=== PATIENT | female | born 1975 | race Caucasian/White ===

== ENCOUNTER → 2017-03-10 | Outpatient (CLI) | payer OTHER ==
[~2017-03-10] MED LIST: ALLEGRA180 MG PO; AMOXICILLIN500 MG PO; AMOXIL500 MG PO; ANAPROX DS550 MG PO; ATIVAN1 MG PO; CORTISPORIN 1%-10 M1 OT; MEDROL DOSEPAK4 MG PO; TRIMOX500 MG PO; VICODIN ES 7501 TAB PO
== END | disposition home or self-care (01) ==
LOC: RAD 09:25
DX: M48.02 Spinal stenosis, cervical region (principal); M99.01 Segmental and somatic dysfunction of cervical region; M99.03 Segmental and somatic dysfunction of lumbar region; M99.04 Segmental and somatic dysfunction of sacral region; Z91.81 History of falling

== ENCOUNTER 2022-05-28 11:52 | Emergency (ER) | payer OTHER ==
[2022-05-28] MEDS ORDERED: AMOXICILLIN500 M2 PO (12:16)
[2022-05-28] MEDS ORDERED: Percocet 325 MG1 TAB PO (12:16)
== END 2022-05-28 12:21 | disposition home or self-care (01) ==
LOC: ED 11:52
DX: K08.89 Other specified disorders of teeth and supporting structures (principal); F41.9 Anxiety disorder, unspecified; Z88.2 Allergy status to sulfonamides; Z88.8 Allergy status to other drugs, medicaments and biological substances; Z98.890 Other specified postprocedural states

== ENCOUNTER → 2023-09-17 | Outpatient (CLI) | payer OTHER ==
[~2023-09-17] MED LIST changes: +AMOXICILLIN500 M2 PO; +Percocet 325 MG1 TAB PO
[2023-09-17 09:56] LABS: URINE AMPHETAMINES Negative (1000ng/ml); URINE BARBITURATES Negative (200ng/ml); URINE BENZODIAZEPINES Negative (200ng/ml); URINE CANNABINOIDS (THC) Negative (50ng/ml); URINE COCAINE Negative (300ng/ml); URINE METHADONE Negative (300ng/ml); URINE OPIATES Negative (300ng/ml); URINE PHENCYCLIDINE Negative (25ng/ml)
== END | disposition home or self-care (01) ==
LOC: LAB 09:09
PROVIDERS: ATTEND Psychiatry & Neurology Psychiatry
DX: R82.5 Elevated urine levels of drugs, medicaments and biological substances (principal)

== ENCOUNTER 2023-10-09 14:52 | Emergency (ER) | payer OTHER ==
[~2023-10-09] VITALS: Ht 157.4 cm; Wt 72.6 kg
[2023-10-09] MEDS ORDERED: ZESTRIL10 MG PO (15:24)
[2023-10-09] MEDS ORDERED: BUSPAR5 MG PO (15:24)
[2023-10-09] MEDS ORDERED: hydrOXYzine pamoate 25 MG CAP PO ONE (15:40)
[2023-10-09 16:02] LABS: BASO % 0.5 % (0.0-1.0); EOS # 0.1 10*3/uL (0.0-0.4); EOS % 0.9 % (1.0-4.0); HEMATOCRIT 42.7 % (37.0-47.0); LYMPH # 0.8 10*3/uL (1.3-4.4); LYMPH % 10.2 % (27.0-41.0); MEAN CELL VOLUME 92.2 fl (81.0-99.0); MEAN CORPUSCULAR HGB 32.2 pg (27.0-31.0); MEAN CORPUSCULAR HGB CONC 34.9 g/dl (33.0-37.0); MEAN PLATELET VOLUME 8.9 fl (9.6-12.3); MONO # 0.5 10*3/uL (0.1-1.0); MONO % 6.3 % (3.0-9.0); NEUT # 6.2 10*3/uL (2.3-7.9); NEUT % 81.3 % (47.0-73.0); PLATELET COUNT AUTOMATED 313 10*3/uL (130-400); RED BLOOD COUNT 4.63 10*6/uL (4.10-5.10); RED CELL DISTRI WIDTH 12.5 % (0-14.5); WHITE BLOOD COUNT 7.6 10*3/uL (4.8-10.8)
[2023-10-09 16:26] LABS: BUN < 5 mg/dl (9-23); CHLORIDE 100 mmol/L (98-107); POTASSIUM 3.3 mmol/L (3.4-5.1)
[2023-10-09] MEDS ORDERED: POTASSIUM CHLORIDE 20 MEQ TAB PO ONE (16:40)
[2023-10-09] MEDS ORDERED: MAGNESIUM CITRATE 296 ML BOT PO ONE (16:40)
[2023-10-09] MEDS ORDERED: VISTARIL25 MG PO (17:26)
== END 2023-10-09 17:02 | disposition home or self-care (01) ==
LOC: ED 14:52
PROVIDERS: Nurse Practitioner Family
DX: K59.00 Constipation, unspecified (principal); F41.9 Anxiety disorder, unspecified; H53.8 Other visual disturbances; E87.6 Hypokalemia; Z88.2 Allergy status to sulfonamides; Z88.8 Allergy status to other drugs, medicaments and biological substances; Z98.890 Other specified postprocedural states

== ENCOUNTER → 2024-04-23 | Outpatient (CLI) | payer OTHER ==
[~2024-04-23] MED LIST changes: +BUSPAR5 MG PO; +VISTARIL25 MG PO; +ZESTRIL10 MG PO
== END | disposition home or self-care (01) ==
LOC: US 10:00
PROVIDERS: ATTEND Nurse Practitioner Family
DX: E04.1 Nontoxic single thyroid nodule (principal); R22.1 Localized swelling, mass and lump, neck

== ENCOUNTER → 2024-05-11 | Outpatient (CLI) | payer OTHER | END | disposition home or self-care (01) | LOC: SDC 11:00 → EDSTATUS 11:00 | PROVIDERS: ATTEND Nurse Practitioner Family | DX: E04.1 Nontoxic single thyroid nodule (principal) ==

== ENCOUNTER 2024-05-18 15:39 | Emergency (ER) | payer OTHER ==
[~2024-05-18] VITALS: Ht 157.4 cm; Wt 70.3 kg
[2024-05-18] MEDS ORDERED: BUSPIRONE HCL10 MG PO (15:50)
[2024-05-18] MEDS ORDERED: LORAZEPAM0.5 M1 PO (15:50)
[2024-05-18] MEDS ORDERED: LISINOPRIL20 MG PO (15:51)
[2024-05-18] MEDS ORDERED: AMOXICILLIN 500 MG CAP PO ONE (16:00)
[2024-05-18] MEDS ORDERED: MELOXICAM15 MG PO (16:00)
[2024-05-18] MEDS ORDERED: Acetaminophen/Oxycodone 5 MG/325 MG TABLET PO ONE (16:00)
[2024-05-18] MEDS ORDERED: FLUCONAZOLE100 MG PO (16:00)
[2024-05-18] MEDS ORDERED: AMOXICILLIN500 M3 PO (16:00)
== END 2024-05-18 16:21 | disposition home or self-care (01) ==
LOC: ED 15:39
DX: K04.7 Periapical abscess without sinus (principal); R22.0 Localized swelling, mass and lump, head; F41.9 Anxiety disorder, unspecified; F17.210 Nicotine dependence, cigarettes, uncomplicated; Z88.2 Allergy status to sulfonamides; Z88.8 Allergy status to other drugs, medicaments and biological substances; Z98.890 Other specified postprocedural states

== ENCOUNTER 2024-07-15 05:06 | Emergency (ER) | payer OTHER ==
[~2024-07-15] VITALS: Ht 157.4 cm; Wt 69.4 kg
[~2024-07-15 05:06] MED LIST changes: +AMOXICILLIN500 M3 PO; +BUSPIRONE HCL10 MG PO; +FLUCONAZOLE100 MG PO; +LISINOPRIL20 MG PO; +LORAZEPAM0.5 M1 PO; +MELOXICAM15 MG PO
[2024-07-15] MEDS ORDERED: AMOXICILLIN 500 MG CAP PO ONE (05:25)
[2024-07-15] MEDS ORDERED: Ketorolac Tromethamine 30 MG/ML VIAL IM ONE (05:25)
[2024-07-15] MEDS ORDERED: FLUCONAZOLE200 MG PO (05:27)
[2024-07-15] MEDS ORDERED: MELOXICAM15 MG PO (05:27)
[2024-07-15] MEDS ORDERED: AMOXICILLIN500 M2 PO (05:27)
== END 2024-07-15 05:52 | disposition home or self-care (01) ==
LOC: ED 05:06
DX: K08.89 Other specified disorders of teeth and supporting structures (principal); Z88.8 Allergy status to other drugs, medicaments and biological substances; Z88.2 Allergy status to sulfonamides; Z79.899 Other long term (current) drug therapy; Z79.2 Long term (current) use of antibiotics; Z90.721 Acquired absence of ovaries, unilateral

== ENCOUNTER 2025-02-04 23:09 | Emergency (ER) | payer OTHER ==
[~2025-02-04] VITALS: Ht 157.4 cm; Wt 72.6 kg
[~2025-02-04 23:09] MED LIST changes: +FLUCONAZOLE200 MG PO
[2025-02-05] MEDS ORDERED: LORazepam 1 MG TAB PO ONE (00:50)
== END 2025-02-05 01:53 | disposition home or self-care (01) ==
LOC: ED 23:09
DX: F41.9 Anxiety disorder, unspecified (principal); Z91.148 Patient's other noncompliance with medication regimen for other reason; Z88.1 Allergy status to other antibiotic agents; Z88.2 Allergy status to sulfonamides; Z88.8 Allergy status to other drugs, medicaments and biological substances